=== PATIENT | male | born 1975 | race Caucasian/White ===

== ENCOUNTER 2018-04-28 12:08 | Emergency (ER) | payer OTHER ==
[2018-04-28 13:59] VITALS: BP 149/110
--- NOTE | 2018-04-28 14:48 | UC ---
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--per the triage note patient injured himself 6 months ago shoveling snow--patient states he had an x-ray but never found out the result -- states he is "living on naproxen and ibuprofen" - History of Current Complaint Chief Complaint: UCBackPain Stated Complaint: BACK PAIN Time Seen by Provider: 04/28/18 14:24 Hx Obtained From: Patient Onset/Duration: Gradual Onset, Still Present Timing: Constant Pain Intensity: 5 Pain Scale Used: 0-10 Numeric Back Pain: Is Discrete @ - lumbar spin Character: Aching, Spasmodic, Stiffness Aggravating Factor(s): Movement Alleviating Factor(s): Nothing - Allergies/Home Medications Allergies/Adverse Reactions: Allergies Allergy/AdvReac Type Severity Reaction Status Date / Time Penicillins Allergy Unknown Verified 04/28/18 14:00 Reaction Details Home Medications: Home Medications Naproxen [Naproxen 500 mg tab] 1 tab PO ONCE 04/28/18 [History Confirmed ] PMH/Surg Hx/FS Hx/Imm Hx - Surgical History Surgical History: None - Family History Known Family History: Positive: None - Social History Occupation: Employed Full-time Lives: With Family Alcohol Use: Rare Substance Use Type: None, Prescribed Substance Use Comment - Amount & Last Used: denies current use Smoking Status (MU): Never Smoked Tobacco - Immunization History Hx Tetanus, Diphtheria Vaccination: Yes Vaccination Up to Date: Yes Review of Systems Constitutional: Negative Skin: Negative Eyes: Negative ENT: Negative Respiratory: Negative Cardiovascular: Negative Gastrointestinal: Negative Genitourinary: Negative Motor: Negative Neurovascular: Negative Musculoskeletal: Arthralgia - lumbar spine Neurological: Negative Psychological: Negative Is Patient Immunocompromised?: No All Other Systems Reviewed And Are Negative: Yes Physical Exam Triage Information Reviewed: Yes Appearance: Well-Appearing, No Pain Distress, Well-Nourished Vital Signs: Initial Vital Signs Temp 97.7 F 04/28/18 13:56 Pulse 76 04/28/18 13:56 Resp 12 04/28/18 13:56 BP 149/110 04/28/18 13:56 Pulse Ox 100 04/28/18 13:56 Vital Signs Reviewed: Yes Eye Exam: Normal Eyes: Positive: Conjunctiva Clear ENT Exam: Normal ENT: Positive: Normal ENT inspection, Hearing grossly normal. Negative: Trismus , Muffled voice, Hoarse voice Dental Exam: Normal Neck exam: Normal Neck: Positive: Supple, Nontender, No Lymphadenopathy Respiratory Exam: Normal Respiratory: Positive: Chest non-tender, No respiratory distress, No accessory muscle use Cardiovascular Exam: Normal Cardiovascular: Positive: RRR, Pulses Normal, Brisk Capillary Refill Musculoskeletal Exam: Normal Musculoskeletal: Positive: Strength Intact, ROM Intact, No Edema Neurological Exam: Normal Neurological: Positive: Alert, Muscle Tone Normal Psychological Exam: Normal Skin Exam: Normal Diagnostics - Radiology No standard instances Xray Interpretation: No Acute Changes Radiology Interpretation Completed By: ED Physician, Radiologist - Patient Name : GREG KATHLEEN Medical Record#: [id number] Ordering Physician: Annamarie Rodriguez NP Acct.#: [id number] : 1975 Age: 43 Sex: M Location: [facility] Exam Date: 04/28/18 1436 ADM Status: REG ER Order Information: SP LUMBARSACRAL 4+ VWS Accession Number: [id number] CPT: 49562 INDICATION: Right lower back pain after "shoveling months ago, lifting and twisting at work" COMPARISON: None. TECHNIQUE: 5 views of the lumbar spine were obtained. FINDINGS: The vertebra are in normal alignment. No fracture is seen. Disc spaces appear maintained. IMPRESSION: No evidence of fracture or subluxation. 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 Absence of a signature indicates the report is in a draft status and still needs to be finalized. In the event this document was created by someone other than the signing Provider, the individual initiating the document will be listed in the "Entered by:" or "Dictated by:" castro. 1 of 1 Back Pain Course/Dx - Course Course Of Treatment: use meds as prescribed only, flexeril, exercise for low back and core strengthening, information regarding hypertension, follow with pcp - Differential Dx/Diagnosis Provider Diagnoses: elevated blood pressure without dx of hypertension, acute on chronic low back pain Discharge - Sign-Out/Discharge Documenting (check all that apply): Patient Departure - Discharge Plan Condition: Stable Disposition: HOME Prescriptions: Cyclobenzaprine TAB* [Flexeril 10 MG TAB*] 10 mg PO BID PRN #15 tab PRN Reason: back pain Patient Education Materials: Hypertension (ED), Chronic Back Pain (ED), Lower Back Exercises (ED), Core Strengthening Exercises (ED) Referrals: [facility] [Outside] - 1 Week () [facility] [place] PH[facility]IAN REFERRAL [Outside] - 1 Week - Billing Disposition and Condition Condition: STABLE Disposition: Home
--- NOTE | 2018-04-28 15:19 | RAD ---
INDICATION: Right lower back pain after "shoveling months ago, lifting and twisting at work" COMPARISON: None. TECHNIQUE: 5 views of the lumbar spine were obtained. FINDINGS: The vertebra are in normal alignment. No fracture is seen. Disc spaces appear maintained. IMPRESSION: No evidence of fracture or subluxation.
== END 2018-04-28 15:37 | disposition home or self-care (01) ==
LOC: UCEAST 12:08
DX: M54.5 Low back pain (principal); R03.0 Elevated blood-pressure reading, without diagnosis of hypertension; G89.29 Other chronic pain; Z88.0 Allergy status to penicillin
CPT/HCPCS: 72110; 99212; G0463

== ENCOUNTER 2018-06-01 19:05 | Emergency (ER) | payer OTHER ==
[2018-06-01] MEDS ORDERED: Diazepam TAB(*) 5 MG PO ONE (19:39)
--- NOTE | 2018-06-01 19:39 | ED ---
Back Pain - HPI Summary HPI Summary: This patient is a 43 year old M presenting to [facility] accompanied by with a chief complaint of low back pain that began at 1100. The patient rates the pain 5/10 in severity. Symptoms aggravated by movement. Symptoms alleviated by nothing. Patient denies urinary symptoms, bowel symptoms, dysuria, hematuria, bilateral LE edema, bruising, rashes, fever, blurred vision, diplopia, sore throat, CP, SOB, headache, anxiety, and depression. Patient reports he has chronic back pain, but this back pain feels different. Patient reports that he lifted a bicycle earlier today. - History of Current Complaint Chief Complaint: EDBackInjuryPain Stated Complaint: BACK PAIN Hx Obtained From: Patient Onset/Duration: Sudden Onset, Lasting Hours, Still Present Onset/Duration: Started Hours Ago Timing: Constant Back Pain Location: Is Discrete @ - Low back Severity Initially: Moderate Severity Currently: Moderate Pain Intensity: 5 Pain Scale Used: 0-10 Numeric Aggravating Symptom(s): Movement Alleviating Symptom(s): Nothing Associated Signs And Symptoms: Positive: Other - Negative urinary symptoms, bowel symptoms, dysuria, hematuria, bilateral LE edema, bruising, rashes, fever , blurred vision, diplopia, sore throat, CP, SOB, headache, anxiety, and depression. - Allergies/Home Medications Allergies/Adverse Reactions: Allergies Allergy/AdvReac Type Severity Reaction Status Date / Time Penicillins Allergy Unknown Verified 04/28/18 14:00 Reaction Details PMH/Surg Hx/FS Hx/Imm Hx Previously Healthy: No Musculoskeletal History: Reports: Hx Back Problems, Hx Scoliosis Psychiatric History: Denies: Hx Eating Disorder, Hx of Violent Episodes Against Others Infectious Disease History: No Infectious Disease History: Denies: Traveled Outside the [place] in Last 30 Days - Family History Known Family History: Positive: Other - Alcohol abuse - father - Social History Occupation: Employed Full-time Lives: With Family Alcohol Use: Rare Hx Substance Use: Yes Substance Use Type: Reports: Prescribed Substance Use Comment - Amount & Last Used: denies current use Hx Tobacco Use: No Smoking Status (MU): Never Smoked Tobacco Review of Systems Negative: Fever Negative: Blurred Vision, Diplopia Negative: Sore Throat Negative: Chest Pain Negative: Shortness Of Breath Gastrointestinal: Negative Genitourinary: Negative Negative: dysuria, hematuria Positive: Other - Positive back pain. Negative: Edema Negative: Rash, Bruising Negative: Headache Negative: Anxious, Depressed All Other Systems Reviewed And Are Negative: No Physical Exam - Summary Physical Exam Summary: Appearance: Alert, conversive, nontoxic appearing Skin: Warm, dry, no mottling, no rashes, no contusions HEENT: EOMI, PERRL, moist mucous membranes Neck: No masses on the neck, supple Respiratory: Clear to auscultation, breath sounds present, no rales, no rhonchi , no wheezes Cardiovascular: RRR, pulses are symmetrical in both lower and upper extremities Abdomen: Soft, non-tender Bowel Sounds: Present Musculoskeletal: No CVA tenderness, no obvious deformity, moving all extremities in a grossly normal manner Neurological: A&Ox3, CN II-XII Intact, moving all extremities symmetrically Psychiatric: Normal affect and mood Triage Information Reviewed: Yes Vital Signs On Initial Exam: Initial Vitals Temp Pulse Resp BP Pulse Ox 96.4 F 75 20 147/88 100 06/01/18 19:19 06/01/18 19:19 06/01/18 19:19 06/01/18 19:19 06/01/18 19:19 Vital Signs Reviewed: Yes Diagnostics - Vital Signs Vital Signs Temp Pulse Resp BP Pulse Ox 06/01/18 19:19 96.4 F 75 20 147/88 100 - Laboratory Lab Statement: Any lab studies that have been ordered have been reviewed, and results considered in the medical decision making process. Re-Evaluation - Re-Evaluation First Eval Re-Evaluation Time: 20:30 Change: Unchanged Comment: Discussed plan of care with pt Second Eval Re-Evaluation Time: 20:52 Change: Improved Comment: Back exam: A lot of tenderness to the paraspinal and right lumbar region. Muscle spasms to right paraspinal and right lumbar region. Back Pain Course/Dx - Course Course Of Treatment: This patient is a 43 year old M presenting to [facility] accompanied by with a chief complaint of low back pain that began at 1100. Physical Exam Findings: Uncomfortable. Neurologically intact. In the ED course the patient was given diazepam, toradol, prednisone, and Percocet. Patient will be discharged with a prescription for Prednisone, Valium, and [place] and follow up from PCP. The patient is agreeable with this plan. - Diagnoses Provider Diagnoses: Sciatic nerve pain, Lumbar strain Discharge - Sign-Out/Discharge Documenting (check all that apply): Patient Departure - Discharge Plan Condition: Stable Disposition: HOME Prescriptions: Diazepam TAB(*) [Valium TAB(*)] 5 mg PO TID PRN #20 tab MDD 3 PRN Reason: Pain - Moderate Hydrocodone/Acetaminophen [[place] 5-325 Tablet] 2 each PO QID #20 tablet MDD 8 predniSONE TAB* [Deltasone 20 MG TAB*] 60 mg PO DAILY #12 tab Patient Education Materials: Oxycodone/Acetaminophen (By mouth), Diazepam (By mouth), Sciatica (ED), Low Back Strain (ED), Safe Use of NSAIDs (ED) Forms: *Work Release Referrals: [facility] [Provider Group] No Primary Care Phys,NOPCP [Primary Care Provider] - Additional Instructions: return if worse or any new symptoms. Take the medications as previously instructed. IT is important to follow up with your primary care physician. Discuss the need for an outpatient MRI of your back. - Billing Disposition and Condition Condition: STABLE Disposition: Home Attestations Scribe Attestation: This is melyssa Tristan documenting for attending Kathleen Bautista MD. User Type: Provider with Scribe Provider Attestation: The documentation recorded by the scribe accurately reflects the service I personally performed and the decisions made by me.
[2018-06-01] MEDS ORDERED: Ketorolac INJ* 60 MG/2 ML VIAL IM ONE (19:40)
[2018-06-01] MEDS ORDERED: oxyCODONE/Acetamin 5/325 MG* TAB PO ONE (19:40)
[2018-06-01] MEDS ORDERED: predniSONE TAB* 20 MG PO ONE (20:27)
[2018-06-01 21:13] VITALS: BP 130/79
== END 2018-06-01 21:42 | disposition home or self-care (01) ==
LOC: ED 19:05
DX: S39.012A Strain of muscle, fascia and tendon of lower back, initial encounter (principal); M54.30 Sciatica, unspecified side; X50.9XXA Other and unspecified overexertion or strenuous movements or postures, initial encounter; Y92.9 Unspecified place or not applicable
CPT/HCPCS: 96372; 99283; A9270-GY; J1885; J7512